=== PATIENT | male | born 1960 | race Caucasian/White ===

== ENCOUNTER 2025-05-23 09:04 | Day surgery (SDC) | payer OTHER ==
[~2025-05-23] VITALS: Ht 182.9 cm; Wt 134.3 kg
[~2025-05-23 09:04] MED LIST: IBUP600 PO; Nystatin15 GM TOP; OXYC5
[2025-05-23] MEDS ORDERED: CLOBETASOL PRO100 GM (09:21)
[2025-05-23] MEDS ORDERED: OMEP20ER (09:21)
[2025-05-23] MEDS ORDERED: TAMS.4ER (09:21)
[2025-05-23] MEDS ORDERED: Benzocaine Oral Spray 0.5ML UD ONE (10:12)
[2025-05-23 13:33] VITALS: BP 124/80
== END 2025-05-23 12:05 | disposition home or self-care (01) ==
LOC: ORSCSDS 09:04
PROVIDERS: Internal Medicine Gastroenterology
PROC: 0D758ZZ Dilation of Esophagus, Via Natural or Artificial Opening Endoscopic (ICD-10-PCS; principal; 2025-05-23 10:30)
PROC: 0DB98ZX Excision of Duodenum, Via Natural or Artificial Opening Endoscopic, Diagnostic (ICD-10-PCS; principal; 2025-05-23 10:30)
PROC: 0DB58ZX Excision of Esophagus, Via Natural or Artificial Opening Endoscopic, Diagnostic (ICD-10-PCS; principal; 2025-05-23 10:30)
PROC: 0DB68ZX Excision of Stomach, Via Natural or Artificial Opening Endoscopic, Diagnostic (ICD-10-PCS; principal; 2025-05-23 10:30)
DX: R13.10 Dysphagia, unspecified (principal); K31.7 Polyp of stomach and duodenum; K21.00 Gastro-esophageal reflux disease with esophagitis, without bleeding; K44.9 Diaphragmatic hernia without obstruction or gangrene; K22.2 Esophageal obstruction; I10 Essential (primary) hypertension; G47.33 Obstructive sleep apnea (adult) (pediatric); N40.0 Benign prostatic hyperplasia without lower urinary tract symptoms; E66.01 Morbid (severe) obesity due to excess calories; Z68.41 Body mass index [BMI] 40.0-44.9, adult; Z79.899 Other long term (current) drug therapy; Z87.891 Personal history of nicotine dependence
CPT/HCPCS: 88305; 88342; A9270; J2704; J7120